=== PATIENT | female | born 1945 | race Caucasian/White ===

== ENCOUNTER 2016-07-20 14:42 | Outpatient (CLI) | payer MEDICARE, OTHER ==
[2015-11-28 09:10] VITALS: BP 166/77
== END 2016-07-20 14:43 ==
LOC: POD 14:42
PROVIDERS: ATTEND Podiatrist
DX: M19.90 Unspecified osteoarthritis, unspecified site (principal); B35.1 Tinea unguium; M79.674 Pain in right toe(s); M79.675 Pain in left toe(s)
CPT/HCPCS: G0463

== ENCOUNTER 2017-08-16 15:10 | Outpatient (CLI) | payer MEDICARE, OTHER ==
[2015-11-28 09:10] VITALS: BP 166/77
== END 2017-08-16 15:20 ==
LOC: POD 15:10
PROVIDERS: ATTEND Podiatrist
DX: B35.1 Tinea unguium (principal); M79.674 Pain in right toe(s); M79.675 Pain in left toe(s); M25.774 Osteophyte, right foot
CPT/HCPCS: 11720; G0463

== ENCOUNTER 2017-10-10 15:59 | Outpatient (CLI) | payer MEDICARE, OTHER ==
[2015-11-28 09:10] VITALS: BP 166/77
[2017-10-10 16:41] LABS: eGFR (African) > 60; eGFR (Non-African) > 60
--- NOTE | 2017-10-10 18:37 | Diagnostic Imaging Report ---
SHAHID MARIO [facility] [id number] [facility] [address] [address] Report Submission Date: October 10, 2017 4:40:17 PM CDT Patient Study Name: ARTURO VIERA Date: October 10, 2017 4:22:33 PM CDT Modality Type: DX Gender: F Description: LOWER EXTREMITY : 43 Institution: [facility] Physician: SHAHID MARIO Examination: Plain film right foot History: RT FOOT, PAIN IN RT FOOT FOR A COUPLE MONTHS, NO KNOWN INJURY. PT STATES PAIN IS THE WORST IN THE 4TH AND 5TH DIGITS (Hx) Findings: 3 views of the right foot demonstrates osteopenia. Articular degenerative changes. No fracture or dislocation. Inferior calcaneal spur. No soft tissue swelling. No joint effusion. Impression: Osteopenia and degenerative changes. No acute osseous process. Electronically signed on October 10, 2017 4:40:17 PM CDT by: Jarrett TORRE
== END 2017-10-10 16:00 ==
LOC: LAB 15:59
PROVIDERS: ATTEND Family Medicine
DX: M79.671 Pain in right foot (principal); Z79.899 Other long term (current) drug therapy
CPT/HCPCS: 36415; 73630; 80048; 84550